=== PATIENT | female | born 1995 | race Caucasian/White ===

== ENCOUNTER → 2021-09-23 16:05 | Outpatient (BNVA) | payer BC, MEDICAID, SELFPAY | PROVIDERS: PCP Nurse Practitioner Family; Visit Provider Nurse Practitioner Family | DX: N92.6 Irregular menstruation, unspecified (principal) | CPT/HCPCS: 84702 ==

== ENCOUNTER 2021-09-25 14:07 | Emergency (ER) | payer BC, MEDICAID, SELFPAY ==
[2021-09-25 15:30] VITALS: BP 112/77; PULSE 93; RESP 22; TEMP 38.1; O2SAT 99; BMI 17.2
--- NOTE | 2021-09-25 15:44 | XR_ITS ---
WS: [id number] Portable AP upright chest, 09/25/2021 Clinical Data: fever, cough Comparison: None. Findings: No nodules, masses or effusions are seen. The heart is normal. The pulmonary vascularity is not increased. No pneumonia or pneumothorax is seen. XR/XR chest 1V portable [id number] Impression: Negative chest.
[2021-09-25 19:08] VITALS: BP 113/65; PULSE 115; RESP 20; TEMP 39.5; O2SAT 94
--- NOTE | 2021-09-25 19:43 | ED_ITS ---
HPI - Fever General: Chief Complaint: Fever Stated Complaint: fever, headache, sore throat Time Seen by Provider: 09/25/21 19:35 Source: patient Mode of arrival: ambulatory Limitations: no limitations History of Present Illness: HPI Narrative: 26-year-old female who states she had a cough congestion fever and body aches over the last 3 days patient's children have had exact same symptoms. She denies any shortness of breath denies any headache denies abdominal or chest pain. She denies any worsening proving factors she had no vomiting no diarrhea she is resting comfortably in the bed currently. Associated symptoms: Reports chills; Deny abdominal pain, chest pain, diarrhea, dysuria, headache(s), nausea or vomiting Review of Systems Const: Reports: fever(s), chills and body aches Eyes: Denies: blurry vision or eye discomfort ENMT: Reports: throat pain Card: Denies: chest pain Resp: Denies: dyspnea GI: Denies: abdominal pain, nausea, vomiting or diarrhea : Denies: dysuria Musc: Denies: neck pain or back pain Skin/Breast: Denies: rash Neuro: Denies: headache(s) Psych: Denies: depression Aaron/Lymph: Denies: easy bruising All/Imm: Denies: urticaria PFSH ED PFSH: Medical History No pertinent past medical history Surgical History Hx of tonsillectomy 2012 Family History Mother Cancer thyroid cancer Social History Smoking and tobacco status: never smoked Second hand smoke exposure: No Smoking risk assessment/counseling performed?: Yes Alcohol intake: never Desire information about alcohol rehabilitation?: No Counseling given: No Desire information about substance/drug rehabilitation?: No Counseling given: No Adopted: No Caregiver/support person: No Lives independently: Yes Household members: children Housing: House Marital status: Single Number of children: 2 Highest education level completed: High School Graduate service: No Current occupational status: employed History of recent travel: No Physical Exam Const: COMMON NORMALS: no acute distress, patient oriented x3 and healthy appearing HENMT: COMMON NORMALS: normocephalic and atraumatic HEAD & SCALP: normocephalic and atraumatic Eye: COMMON NORMALS: Equal, round and reactive pupils present and EOMs intact bilaterally PUPIL: Yes Equal, round and reactive pupils present Neck/C-Spine: COMMON NORMALS: full ROM, supple and no meningeal signs Chest: COMMONS NORMALS: normal inspection of the chest and normal palpation of entire chest wall Resp: COMMON NORMALS: normal respiratory effort, No retractions, No use of accessory muscles and clear to auscultation bilaterally AUSCULTATION: clear to auscultation bilaterally Cardio: COMMON NORMALS: regular rate, regular rhythm and No murmurs present (Cardio) RATE: regular rate RHYTHM: regular rhythm GI: COMMON NORMALS: Normal to inspection, nondistended, normoactive bowel sounds present, Soft to palpation, non-tender and no masses PALPATION: Yes Soft to palpation Extremity: COMMON NORMALS: normal to inspection and full ROM Neuro: COMMON NORMALS: patient oriented x3, moves all extremities and no focal motor deficits MENINGEAL SIGNS: Yes no meningeal signs Psych: COMMON NORMALS: mental status grossly normal, Normal thought process present and cooperative THOUGHT PROCESS: Normal thought process present Skin: COMMON NORMALS: no rashes or lesions noted and no wounds GENERAL SKIN EXAM: no rashes or lesions noted Course Vital Signs: Vital signs: Vital Signs Temperature 100.3 F H 09/25/21 21:50 Pulse Rate 87 09/25/21 21:50 Respiratory Rate 18 09/25/21 21:50 Blood Pressure 103/64 09/25/21 21:50 Pulse Oximetry 98 09/25/21 21:50 MDM - Fever MDM Narrative: Medical decision making narrative: Patient presents here with likely viral syndrome patient's here his son has the same blood work including lactate are all normal no signs of severe sepsis or bacterial infection she is take Motrin Tylenol for fever at home she has no signs meningitis she is follow- up with PCP and return if worsening. Lab Data: Labs: Lab Results 09/25/21 09/25/21 09/25/21 19:10 19:45 20:34 WBC RBC Hgb Hct MCV MCH MCHC RDW Plt Count MPV Neut % (Auto) Lymph % (Auto) [place] % (Auto) Eos % (Auto) Baso % (Auto) Neut # (Auto) Lymph # (Auto) [place] # (Auto) Eos # (Auto) Baso # (Auto) Nucleated RBC % (a uto) Nucleated RBCs # Sodium Potassium Chloride Carbon Dioxide Anion Gap BUN Creatinine GFR Calculation Glucose Calculated Osmolal ity Lactic Acid Calcium Total Bilirubin AST ALT Alkaline Phosphata se Total Protein Albumin Globulin Urine Color Yellow (Yellow) Urine Appearance Hazy A (CLEAR) Urine pH 5 (5-7) Ur Specific Gravit y 1.020 (1.005-1.030) Urine Protein Neg (Negative) Urine Glucose (UA) Norm (Normal) Urine Ketones 1+ H (Negative) Urine Blood Neg (Negative) Urine Nitrate Negative (Negative) Urine Bilirubin Neg (Negative) Urine Urobilinogen Norm mg/dL mg/dL (Negative) Ur Leukocyte Sofy ase Negative (Negative) Nasal Influ A H1 2 009 PCR Coronavirus 229E ( PCR) Not detected (NOT DETECT) Influenza A (H1) P CR Influenza A (H3) P CR Influenza Type A ( PCR) Influenza Type B ( PCR) SARS-CoV-2 (PCR) Not detected (NOT DETECT) Group A Strep Rapi d Negative (Negative) 09/25/21 09/25/21 09/25/21 21:15 21:15 21:15 WBC 9.4 10^3/uL 10^3/ uL (4.0-10.0) RBC 4.37 10^6/uL 10^6 /uL (4.1-5.3) Hgb 13.1 g/dL g/dL (11.5-15.3) Hct 40.0 % % (37.0-47.0) MCV 91.5 fl fl (81-99) MCH 30.0 pg pg (28.0-34.0) MCHC 32.8 g/dL g/dL (30.0-36.0) RDW 11.9 % L % (12.1-15.1) Plt Count 169 10^3/cmm 10^3 /cmm (130-400) MPV 10.5 fL H fL (7.4-10.4) Neut % (Auto) 85.5 % % Lymph % (Auto) 8.1 % % [place] % (Auto) 5.7 % % Eos % (Auto) 0.0 % % Baso % (Auto) 0.3 % % Neut # (Auto) 8.00 10^3/uL H 10 ^3/uL (1.8-7.7) Lymph # (Auto) 0.8 10^3/uL 10^3/ uL (0.8-4.8) [place] # (Auto) 0.5 10^3/uL 10^3/ uL (0.2-0.9) Eos # (Auto) 0.0 10^3/uL 10^3/ uL (0.0-0.8) Baso # (Auto) 0.0 10^3/uL 10^3/ uL (0.0-0.1) Nucleated RBC % (a uto) 0 % % Nucleated RBCs # 0.0 /100WBC /100W BC Sodium 138 mmol/L mmol/L (136-145) Potassium 3.6 mmol/L mmol/L (3.5-5.1) Chloride 103 mmol/L mmol/L (98-107) Carbon Dioxide 21 mmol/L L mmol/ L (22-29) Anion Gap 17.6 (5-19) BUN 7 mg/dL mg/dL (6-20) Creatinine 0.7 mg/dL mg/dL (0.5-0.9) GFR Calculation 100.4 mL/min mL/m in (90-130) Glucose 129 mg/dL H mg/dL (65-115) Calculated Osmolal ity 286 mOsm/kg mOsm/ kg (285-295) Lactic Acid 1.8 mmol/L mmol/L (0.5-2.2) Calcium 8.2 mg/dL L mg/dL (8.5-10.5) Total Bilirubin 0.2 mg/dL mg/dL (0.15-1.2) AST 14 U/L U/L (0-32) ALT 9 U/L U/L (0-33) Alkaline Phosphata se 70 IU/L IU/L (35-105) Total Protein 6.5 g/dL L g/dL (6.6-8.7) Albumin 4.3 g/dL g/dL (3.5-5.2) Globulin 2.2 g/dL g/dL (1.3-4.6) Urine Color Urine Appearance Urine pH Ur Specific Gravit y Urine Protein Urine Glucose (UA) Urine Ketones Urine Blood Urine Nitrate Urine Bilirubin Urine Urobilinogen Ur Leukocyte Sofy ase Nasal Influ A H1 2 009 PCR Coronavirus 229E ( PCR) Influenza A (H1) P CR Influenza A (H3) P CR Influenza Type A ( PCR) Influenza Type B ( PCR) SARS-CoV-2 (PCR) Group A Strep Rapi d 09/25/21 21:29 WBC RBC Hgb Hct MCV MCH MCHC RDW Plt Count MPV Neut % (Auto) Lymph % (Auto) [place] % (Auto) Eos % (Auto) Baso % (Auto) Neut # (Auto) Lymph # (Auto) [place] # (Auto) Eos # (Auto) Baso # (Auto) Nucleated RBC % (a uto) Nucleated RBCs # Sodium Potassium Chloride Carbon Dioxide Anion Gap BUN Creatinine GFR Calculation Glucose Calculated Osmolal ity Lactic Acid Calcium Total Bilirubin AST ALT Alkaline Phosphata se Total Protein Albumin Globulin Urine Color Urine Appearance Urine pH Ur Specific Gravit y Urine Protein Urine Glucose (UA) Urine Ketones Urine Blood Urine Nitrate Urine Bilirubin Urine Urobilinogen Ur Leukocyte Sofy ase Nasal Influ A H1 2 009 PCR Not detected (NOT DETECT) Coronavirus 229E ( PCR) Influenza A (H1) P CR Not detected (NOT DETECT) Influenza A (H3) P CR Detected A (NOT DETECT) Influenza Type A ( PCR) Detected A (NOT DETECT) Influenza Type B ( PCR) Not detected (NOT DETECT) SARS-CoV-2 (PCR) Group A Strep Rapi d Discharge Plan Discharge Patient Disposition: Home Clinical Impression: Acute viral syndrome Condition: Stable Prescriptions: No Action No Known Home Medications RF: 0 Discharge Orders: Discharge ED (Routine); Ordered 09/25/21 Ordered By: Hernandez Bey Discharge Diet: Advance as tolerated Discharge Activity: Resume usual activity Patient Instructions: Viral Syndrome (ED) Coding Level of Care Code 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
[2021-09-25] MEDS: acetaminophen 500 mg Tablet 1000 MG PO (19:44)
[2021-09-25 20:25] LABS: Rapid Strep A Test Negative (Negative)
[2021-09-25 20:36] VITALS: BP 99/62; PULSE 125; RESP 20; TEMP 39.4; O2SAT 95
[2021-09-25 20:58] LABS: Add Urine Microscopic? NO; Charge for UA Resulting for Rev
[2021-09-25 21:05] LABS: Bilirubin Urine Neg (Negative); Blood Urine Neg (Negative); Glucose Urine UA Norm (Normal); Ketones Urine 1+ (Negative); Leukocyte Esterase Urine Negative (Negative); Nitrate Urine Negative (Negative); Protein Urine Neg (Negative); Urine Appearance Hazy (CLEAR); Urine Color Yellow (Yellow); Urobilinogen Urine Norm (Negative); pH Urine 5 (5-7)
[2021-09-25] MEDS: ibuprofen 800 mg tablet PO (21:18)
[2021-09-25 21:19] LABS: Adenovirus Not Detected (NOT DETECT); Chlamydia Pneumoniae Not Detected (NOT DETECT); Coronavirus 229E,HKU1,NL63,OC4 Not Detected (NOT DETECT); Human Metapneumovirus Not Detected (NOT DETECT); Human Rhinovirus/Enterovirus Not Detected (NOT DETECT); Influenza A Detected (NOT DETECT); Influenza A H1 Not Detected (NOT DETECT); Influenza A H1-2009 Not Detected (NOT DETECT); Influenza A H3 Detected (NOT DETECT); Influenza B Not Detected (NOT DETECT); Mycoplasma Pneumoniae Not Detected (NOT DETECT); Parainfluenza Virus Type 1 Not Detected (NOT DETECT); Parainfluenza Virus Type 2 Not Detected (NOT DETECT); Parainfluenza Virus Type 3 Not Detected (NOT DETECT); Parainfluenza Virus Type 4 Not Detected (NOT DETECT); Respiratory Syncytial Virus A Not Detected (NOT DETECT); Respiratory Syncytial Virus B Not Detected (NOT DETECT); SARS-COV-2 Not Detected (NOT DETECT)
[2021-09-25] MEDS: sodium chloride 0.9% 1,000 ML 999 ML IV (21:19)
[2021-09-25 21:25] LABS: Basophils % 0.3 %; Hemoglobin 13.1 g/dL (11.5-15.3); Lymphocytes # 0.8 10^3/uL (0.8-4.8); Lymphocytes % 8.1 %; Mean Corpuscular HGB Conc 32.8 g/dL (30.0-36.0); Mean Corpuscular Volume 91.5 fl (81-99); Mean Platelet Volume 10.5 fL (7.4-10.4); Monocytes # 0.5 10^3/uL (0.2-0.9); Monocytes % 5.7 %; Neutrophils % 85.5 %; Nucleated Red Blood Cells % 0 %; Platelet Count 169 10^3/cmm (130-400); Red Blood Count 4.37 10^6/uL (4.1-5.3); Red Cell Distribution Width 11.9 % (12.1-15.1); White Blood Count 9.4 10^3/uL (4.0-10.0)
[2021-09-25 21:29] LABS: Influenza A Detected (NOT DETECT); Influenza A H1 Not Detected (NOT DETECT); Influenza A H1-2009 Not Detected (NOT DETECT); Influenza A H3 Detected (NOT DETECT); Influenza B Not Detected (NOT DETECT); Results from Genmark
[2021-09-25 21:50] VITALS: BP 103/64; PULSE 87; RESP 18; TEMP 37.9; O2SAT 98
[2021-09-25 21:55] LABS: Lactic Sepsis W/Reflex 1.8 mmol/L (0.5-2.2)
[2021-09-25 21:56] LABS: Alanine Aminotransferase 9 U/L (0-33); Albumin Level 4.3 g/dL (3.5-5.2); Alkaline Phosphatase 70 IU/L (35-105); Anion Gap 17.6 (5-19); Aspartate Amino Transferase 14 U/L (0-32); Blood Urea Nitrogen 7 mg/dL (6-20); Calcium 8.2 mg/dL (8.5-10.5); Carbon Dioxide 21 mmol/L (22-29); Chloride 103 mmol/L (98-107); Globulin 2.2 g/dL (1.3-4.6); Glomerular Filtration Rate 100.4 mL/min (90-130); Glucose 129 mg/dL (65-115); Osmolality Calculated 286 mOsm/kg (285-295); Potassium 3.6 mmol/L (3.5-5.1); Sodium 138 mmol/L (136-145); Total Bilirubin 0.2 mg/dL (0.15-1.2); Total Protein 6.5 g/dL (6.6-8.7)
[2021-09-25 22:17] VITALS: BP 103/64; PULSE 87; RESP 16; TEMP 37.9; O2SAT 98
== END 2021-09-25 22:10 | disposition home or self-care (01) ==
PROVIDERS: Physician Assistant; Emergency Provider Emergency Medicine
DX: B34.9 Viral infection, unspecified (principal); R05.9 Cough, unspecified; R50.9 Fever, unspecified; R52 Pain, unspecified
CPT/HCPCS: 71045; 80053; 81003; 83605; 85025; 87040; 87081; 87631; 87635; 87880; 96360; 99284; J7030

== ENCOUNTER → 2021-12-10 15:02 | Outpatient (BNVA) | payer BC, MEDICAID, SELFPAY | PROVIDERS: Visit Provider Nurse Practitioner Family | DX: N92.1 Excessive and frequent menstruation with irregular cycle (principal) | CPT/HCPCS: 84702 ==

== ENCOUNTER → 2022-01-21 10:50 | Outpatient (BNVA) | payer BC, MEDICAID, SELFPAY | PROVIDERS: Visit Provider Nurse Practitioner Family | DX: R05.9 Cough, unspecified (principal) | CPT/HCPCS: 87400 ==

== ENCOUNTER → 2022-01-30 11:24 | Outpatient (BNVA) | payer BC, MEDICAID, SELFPAY | PROVIDERS: Visit Provider Nurse Practitioner Family | DX: Z32.00 Encounter for pregnancy test, result unknown (principal); N91.1 Secondary amenorrhea; R63.4 Abnormal weight loss | CPT/HCPCS: 80053; 84443; 84702 ==